=== PATIENT | female | born 1985 | race African-American/Black ===

== ENCOUNTER 2021-07-12 13:48 | Inpatient (IN) ==
[2021-07-12] MEDS ORDERED: miSOPROStoL 200 MCG TABLET RECTAL PRN (13:58)
[2021-07-12] MEDS ORDERED: METHYLERGONOVINE 0.2 MG/1 ML AMP IM PRN (13:58)
[2021-07-12] MEDS ORDERED: ceFAZolin 2,000 MG/50 ML DUPLEX IV ONE (13:58)
[2021-07-12] MEDS ORDERED: FAMOTIDINE 20 MG/2 ML VIAL IV ONE (13:58)
[2021-07-12] MEDS ORDERED: OXYTOCIN/LR 20 UNIT/1,000 ML BAG IV ONE ×2 (13:58→16:55)
[2021-07-12] MEDS ORDERED: CARBOPROST TROMETHAMINE 250 MCG/ML AMP IM PRN (13:58)
[2021-07-12] MEDS ORDERED: CITRIC ACID/SODIUM CITRATE 30 ML UDCUP PO ONE (13:58)
[2021-07-12] MEDS ORDERED: TRANEXAMIC ACID 1,000 MG in SODIUM CHLORIDE 0.9% 100 ML IV PRN (13:58)
[2021-07-12] MEDS ORDERED: OXYTOCIN 10 UNIT/ML VIAL IM ONE (14:00)
[2021-07-12] MEDS ORDERED: LACTATED RINGERS 1,000 ML IV SCH ×2 (14:00→17:00)
[2021-07-12] MEDS ORDERED: NIFEdipine 10 MG CAPSULE PO ONE ×3 (14:25→21:03)
[2021-07-12 14:36] LABS: Basophils % 0.3 % (0.0-0.8); Eosinophils # 0.1 10*3/uL (0.0-0.87); Eosinophils % 0.8 % (0.00-10.9); Hematocrit 37.9 VOL% (35.7-47.0); Hemoglobin 12.3 GM/DL (12.0-16.0); Immature Granulocytes % 0.4 %; Immature Granulocytes Absolute 0.03 #; Lymphocytes # 2.7 10*3/uL (1.4-4.0); Lymphocytes % 38.1 % (21.3-54.2); Mean Corpuscular HGB Conc 32.5 GM/DL (32-36); Mean Corpuscular Volume 94.5 FL (87-102); Monocytes # 0.8 10*3/uL (0.11-0.8); Monocytes % 11.7 % (1.7-12.7); Neutrophils % 48.7 % (38.7-73.9); Platelet Count 166 T/CUMM (130-400); Red Blood Count 4.01 MC/CUMM (3.8-5.5); Red Cell Distribution Width 12.5 % (9.3-17.3); White Blood Count 7.1 T/CUMM (4-12)
[2021-07-12 14:50] LABS: INR 0.8; PT Patient Result 9.6 SECS (10.5-12.0)
[2021-07-12] MEDS ORDERED: ONDANSETRON 4 MG/2 ML VIAL ONE (15:20)
[2021-07-12] MEDS ORDERED: KETOROLAC 30 MG/1 ML VIAL ONE (15:20)
[2021-07-12] MEDS ORDERED: BUPIVACAINE MPF 0.5% 30 ML VIAL ONE (15:20)
[2021-07-12] MEDS ORDERED: buprenorphine HCL 0.3 MG/ML VIAL ONE (15:20)
[2021-07-12] MEDS ORDERED: OXYTOCIN/LR 30 UNIT/1,000 ML BAG IV ONE (16:00)
[2021-07-12] MEDS ORDERED: FUROSEMIDE 20 MG/2 ML VIAL ONE (16:20)
[2021-07-12 16:30] LABS: Cord Arterial Blood HCO3 21.5 MMOL/L
[2021-07-12 16:33] LABS: Cord Venous Blood HCO3 21.2 MMOL/L; Cord Venous Blood PCO2 56.4 MMHG; Cord Venous Blood PO2 21.1
[2021-07-12 16:37] LABS: Bacteria,Urine Occasional /HPF (Few); Hyaline Casts,Urine 51 /LPF (0-3); Mucus,Urine Occasional /LPF (Occasional); RBC,Urine 4 /HPF (0-4); Squamous Epithelial Cell,Urine Occasional /HPF (0-10)
[2021-07-12 16:39] LABS: Protein/Creatinine Ratio,Urine 13.5 RATIO
[2021-07-12 16:40] LABS: Bilirubin,Urine Negative (Negative); Blood, Urine Small mg/dL (Negative); Glucose,Urine (UA) Negative (Negative); Ketones,Urine Negative (Negative); Nitrite,Urine Negative (Negative); Protein,Urine >=300 mg/dL (Negative); Urine Appearance Clear (Clear); Urine Color Yellow (Yellow); Urine Specific Gravity 1.025 (1.001-1.035); Urine Urobilinogen 0.2 eU/dL (<2.0); Urine pH 6.5 (4.5-8.0)
[2021-07-12] MEDS ORDERED: diphenhydrAMINE 50 MG/1 ML VIAL IV PRN (16:47)
[2021-07-12] MEDS ORDERED: HYDROmorphone 1 MG/1 ML SYRINGE IV PRN (16:47)
[2021-07-12] MEDS ORDERED: ONDANSETRON 4 MG/2 ML VIAL IV PRN ×2 (16:47→16:55)
[2021-07-12] MEDS ORDERED: hydrOXYzine HCL 25 MG/1 ML VIAL IM PRN (16:47)
[2021-07-12] MEDS ORDERED: MAGNESIUM HYDROXIDE SUSP 30 ML UDCUP PO PRN (16:55)
[2021-07-12] MEDS ORDERED: SIMETHICONE CHEW 80 MG TABLET PO PRN (16:55)
[2021-07-12] MEDS ORDERED: RHO(D) IMMUNE GLOBULIN 300 MCG SYRINGE IM ONE (16:55)
[2021-07-12] MEDS ORDERED: ACETAMINOPHEN 325 MG TABLET PO PRN (16:55)
[2021-07-12] MEDS: ACETAMINOPHEN 500 MG TABLET PO SCH (20:08)
[2021-07-12] MEDS: DOCUSATE SODIUM 100 MG CAPSULE PO SCH (21:12)
[2021-07-12 22:37] LABS: Rubella Antibody IgG Result Reactive (NonReactive)
[2021-07-12] MEDS: FUROSEMIDE 40 MG/4 ML VIAL IV SCH (22:41)
[2021-07-12 22:46] LABS: HIV Antigen/Antibody Result Nonreactive (Nonreactive)
[2021-07-12] MEDS: KETOROLAC 30 MG/1 ML VIAL IV SCH (23:08)
[2021-07-13] MEDS: ACETAMINOPHEN 500 MG TABLET PO SCH ×3 (02:39→14:23)
[2021-07-13] MEDS: FUROSEMIDE 40 MG/4 ML VIAL IV SCH (04:09)
[2021-07-13] MEDS: KETOROLAC 30 MG/1 ML VIAL IV SCH ×2 (05:12→11:03)
[2021-07-13 09:10] LABS: Basophils % 0.4 % (0.0-0.8); Eosinophils # 0.1 10*3/uL (0.0-0.87); Eosinophils % 0.9 % (0.00-10.9); Hemoglobin 12.6 GM/DL (12.0-16.0); Immature Granulocytes % 0.5 %; Immature Granulocytes Absolute 0.05 #; Lymphocytes # 3.1 10*3/uL (1.4-4.0); Lymphocytes % 29.9 % (21.3-54.2); Mean Corpuscular HGB Conc 33.2 GM/DL (32-36); Mean Corpuscular Volume 92.7 FL (87-102); Mean Platelet Volume 12.3 FL (9.6-12.0); Monocytes # 1.1 10*3/uL (0.11-0.8); Monocytes % 10.3 % (1.7-12.7); Platelet Count 186 T/CUMM (130-400); Red Cell Distribution Width 12.6 % (9.3-17.3); White Blood Count 10.4 T/CUMM (4-12)
[2021-07-13 09:27] LABS: Eosinophils 1 % (0-10); Lymphocytes 26 % (20-55); Platelet Estimate Adequate; Total Cells Counted 100
[2021-07-13] MEDS: MULTIVITAMIN (PRENATAL) TABLET PO SCH (11:03)
[2021-07-13] MEDS: DOCUSATE SODIUM 100 MG CAPSULE PO SCH ×3 (11:04→22:25)
[2021-07-13] MEDS: IBUPROFEN 800 MG TABLET PO PRN (19:54)
[2021-07-14] MEDS: IBUPROFEN 800 MG TABLET PO PRN (04:26)
[2021-07-14] MEDS: DOCUSATE SODIUM 100 MG CAPSULE PO SCH ×2 (08:37→21:16)
[2021-07-14] MEDS: MULTIVITAMIN (PRENATAL) TABLET PO SCH (08:38)
[2021-07-14] MEDS ORDERED: FUROSEMIDE 20 MG TABLET ONE ×2 (09:47→17:11)
[2021-07-14] MEDS: FUROSEMIDE 40 MG TABLET PO SCH ×2 (09:55→17:33)
[2021-07-14] MEDS ORDERED: MAGNESIUM CITRATE 300 ML BOTTLE PO ONE (10:00)
[2021-07-15] MEDS: IBUPROFEN 800 MG TABLET PO PRN ×2 (04:38→12:57)
[2021-07-15] MEDS: MULTIVITAMIN (PRENATAL) TABLET PO SCH (08:10)
[2021-07-15] MEDS: DOCUSATE SODIUM 100 MG CAPSULE PO SCH (08:10)
[2021-07-15 12:36] VITALS: BP 152/96
== END 2021-07-15 17:00 | disposition home or self-care (01) | DRG 787 ==
LOC: N.LD 13:48 → N.OB 07-13 11:38
PROVIDERS: ADMIT Obstetrics & Gynecology; ATTEND Obstetrics & Gynecology
PROC: LDCSECT (ICD-10-PCS; 2021-07-12 15:00)